=== PATIENT | male | born 1980 | race Caucasian/White ===

== ENCOUNTER 2019-10-15 21:39 | Emergency (ER) | payer SELFPAY ==
[~2019-10-15] VITALS: Ht 175.3 cm; Wt 83.9 kg
--- NOTE | 2019-10-15 21:43 | NUR ---
PT TAKEN TO BED 6
[2019-10-15 21:49] VITALS: BP 147/86
--- NOTE | 2019-10-15 21:50 | NUR ---
39 Y/O MALE C/O EPIGASTRIC/ ESOPHAGUS AND TONGUE DISOCLORATION X 15 DAYS. WENT TO [facility] 15 DAYS AGO FOR EPIGASTRIC PAIN AND WAS DIANOSISED WITH GASTIRITIS. WAS PRESCRIBED FLAGYL AND AMOXICILLIN. PT NOTICES TONGUE TURNING BLACK TODAY. TONGUE SHOWS BLACK DISCOLORATION. AIRWAY PATENT AND CLEAR. LUNG SOUNDS CLEAR ALL THROUGHOUT. ABD IS SOFT, FLAT, NONTENDER, ACTIVE BS. DENIES ANY N,V,D, OR BLOOD IN STOOL. VSS. A&O X4. STEADY GAIT. SIDERAILS UP X1. NKA. PMH: NONE.
--- NOTE | 2019-10-15 21:56 | NUR ---
Dr. Crowley examining patient.
[2019-10-15] MEDS ORDERED: PANTOPRAZOLE 40 MG TABEC PO ONE (22:05)
[2019-10-15 22:23] LABS: BASOPHILS % (AUTO) 0.4 % (0.0-2.0); EOSINOPHILS % (AUTO) 0.6 % (0.0-4.0); HEMATOCRIT 45.9 % (36-52); HEMOGLOBIN 15.1 g/dL (12.0-18.0); LYMPHOCYTES # (AUTO) 1.7 K/uL (2.0-11.5); MEAN CORPUSCULAR HEMOGLOBIN 29 pg (27-31); MEAN CORPUSCULAR HGB CONC 33 g/dL (33-37); MEAN CORPUSCULAR VOLUME 86.9 fL (80-94); MONOCYTES # (AUTO) 0.4 K/uL (0.8-1.0); MONOCYTES % (AUTO) 4.9 % (1.7-9.3); NEUTROPHILS % (AUTO) 70.1 % (42.2-75.2); PLATELET COUNT (AUTO) 225 K/uL (140-450); RED BLOOD CELL COUNT(AUTO) 5.27 MIL/uL (4.20-6.10); RED CELL DISTRIBUTION WIDTH 13.9 % (11.6-13.7); WHITE BLOOD COUNT (AUTO) 7.1 K/uL (4.8-10.8)
[2019-10-15 22:37] LABS: CARBON DIOXIDE 27.4 mmol/L (21-32); CREATININE 0.9 mg/dL (0.6-1.3); POTASSIUM 3.4 mmol/L (3.5-5.1); TOTAL BILIRUBIN 0.6 mg/dL (0.0-1.0)
[2019-10-15] MEDS ORDERED: DEXAMETHASONE 4 MG/ML VIAL PO ONE (23:05)
[2019-10-15 23:21] VITALS: BP 128/78
--- NOTE | 2019-10-15 23:36 | NUR ---
Patient discharged with v/s stable. Written and verbal after care instructions given and explained. Patient alert, oriented and verbalized understanding of instructions. Ambulatory with steady gait. All questions addressed prior to discharge. ID band removed. Patient advised to follow up with PMD. Rx of OMEPRAZOLE given. Patient educated on indication of medication including possible reaction and side effects. Opportunity to ask questions provided and answered.
== END 2019-10-15 23:36 | disposition home or self-care (01) ==
LOC: MED 21:39
DX: K29.70 Gastritis, unspecified, without bleeding (principal)
CPT/HCPCS: 36415; 80053; 83690; 85025; 99283; J1100

== ENCOUNTER 2019-10-17 00:54 | Emergency (ER) | payer SELFPAY ==
[~2019-10-17] VITALS: Ht 182.9 cm; Wt 81.6 kg
[2019-10-17 00:55] VITALS: BP 152/89
--- NOTE | 2019-10-17 00:55 | NUR ---
DR. GUSMAN ASSESSING PT IN TENT.
--- NOTE | 2019-10-17 00:55 | NUR ---
PT 39 Y/O MALE BIB SELF FOR C/O SOB X 3 DAYS. PT STATES HE WAKES UP IN THE MIDDLE OF THE NIGHT AND STARTS TO FEEL SHORT OF BREATH. PT CURRENT RESPIRATIONS ARE EVEN AND UNLABORED. O2SAT @ 98% RA. PT DENIES COUGH AND AFEBRILE. DENIES HAVING FEVER AT HOME. PT STATES HX OF GASTRITIS. PT ALSO STATES HE HAS BEEN HAVING ANXIETY ABOUT [place] [facility]IR[facility] FOR THE PAST 2 MONTHS. PT VSS. PT WEARING MASK. TRIAGE NURSE WEARING PPE. MEDHX: ANXIETY, GASTRITIS ALLERGIES: NKA
--- NOTE | 2019-10-17 01:15 | NUR ---
COVID SWAB COLLECTED.
--- NOTE | 2019-10-17 01:50 | NUR ---
KIMMIE SPOKE TO PT IN TRAIGE TENT.
[2019-10-17 02:15] VITALS: BP 152/89
--- NOTE | 2019-10-17 02:15 | NUR ---
Patient discharged with v/s stable. Written and verbal after care instructions given and explained. Patient verbalized understanding. Ambulatory with steady gait. All questions addressed prior to discharge. Advised to follow up with PMD.
== END 2019-10-17 02:15 | disposition home or self-care (01) ==
LOC: EEVIPCON 00:54 → MED 00:54
DX: R06.02 Shortness of breath (principal); Z20.828 Contact with and (suspected) exposure to other viral communicable diseases
CPT/HCPCS: 36415; 71045; 87635; 99284; Q0092

== ENCOUNTER 2019-11-03 18:33 | Emergency (ER) | payer OTHER, SELFPAY ==
[~2019-11-03] VITALS: Ht 177.8 cm; Wt 81.6 kg
[2019-11-03 18:51] VITALS: BP 137/49
--- NOTE | 2019-11-03 19:17 | NUR ---
Dr. Mc examining patient.
--- NOTE | 2019-11-03 19:22 | NUR ---
39 Y/O MALE PRESENTS TO ER WITH C/O THROAT PAIN X 1 DAY. 6/10 BURNING PAIN ONLY IN THROAT, MOSTLY FELT AT NIGHT, AND SOMETIMES AFTER EATING FOOD. DENIES FEVER, NAUSEA, VOMITING, DIARRHEA, COUGH. DENIES BLOOD IN STOOL. DENIES ABDOMINAL PAIN PT WAS HERE AT [facility] 15 DAYS TESTED FOR COVID, RESULTS WERE NEG. SIDE RAIL X1, BED IN LOW POSITION, WILL CONTINUE TO MONITOR. DENIES PMH NKDA
[2019-11-03 19:37] VITALS: BP 137/49
--- NOTE | 2019-11-03 19:38 | NUR ---
Patient discharged with v/s stable. Written and verbal after care instructions given and explained. Patient alert, oriented and verbalized understanding of instructions. Ambulatory with steady gait. All questions addressed prior to discharge. ID band removed. Patient advised to follow up with PMD. Rx of PRILOSEC given. Patient educated on indication of medication including possible reaction and side effects. Opportunity to ask questions provided and answered.
== END 2019-11-03 19:38 | disposition home or self-care (01) ==
LOC: MED 18:33
DX: J02.9 Acute pharyngitis, unspecified (principal); K21.9 Gastro-esophageal reflux disease without esophagitis
CPT/HCPCS: 99283

== ENCOUNTER 2019-12-09 22:15 | Emergency (ER) | payer OTHER ==
[~2019-12-09] VITALS: Ht 180.3 cm; Wt 94.8 kg
[2019-12-09 22:19] VITALS: BP 142/84
--- NOTE | 2019-12-09 22:25 | NUR ---
PT AMBULATED TO BED 6 WITH STEADY GAIT
--- NOTE | 2019-12-09 22:37 | NUR ---
Dr. Maldonado examining patient.
--- NOTE | 2019-12-09 22:39 | NUR ---
39 Y/O M PRESENTS TO ED C/O HEADACHE RADIATING TO BOTH EARS X 10 DAYS. PT STATES PAIN USED TO BE INTERMITTENT, BUT HAS GOTTEN WORST. PT STATES TAKING PAIN MEDICATION YESTERDAY WITH NO RELIEF. PT ALSO STATES BEING ABLE TO AMBULATE STEADILY BUT WILL SOMETIMES LOSE BALANCE. PT DENIES TRAUMA TO HEAD. RR EVEN AND UNLABORED. LUNG SOUNDS CLEAR. BED IN LOWEST POSITION, SIDE RAIL UP X1. WILL CONTINUE TO MONITOR. MHX: DENIES NKA
[2019-12-09] MEDS ORDERED: KETOROLAC 60 MG/2 ML VIAL IM ONE (22:40)
[2019-12-10 00:10] VITALS: BP 142/84
== END 2019-12-10 00:09 | disposition home or self-care (01) ==
LOC: MED 22:15
DX: G44.209 Tension-type headache, unspecified, not intractable (principal)
CPT/HCPCS: 96372; 99283; J1885

== ENCOUNTER 2021-07-11 13:49 | Emergency (ER) | payer SELFPAY ==
--- NOTE | 2021-07-11 15:16 | NUR ---
ATTEMPTED TO CALL PATIENT AND NO ANSWER AT THIS TIME
--- NOTE | 2021-07-11 15:29 | NUR ---
ATTEMPTED TO CALL PATIENT AND NO ANSWER
[2021-07-11] MEDS ORDERED: ACET-8386 PO (17:51)
== END 2021-07-11 15:16 | disposition left against medical advice (07) ==
LOC: MED 13:49
DX: M54.9 Dorsalgia, unspecified (principal); Z53.21 Procedure and treatment not carried out due to patient leaving prior to being seen by health care provider

== ENCOUNTER 2021-07-11 17:23 | Emergency (ER) | payer SELFPAY ==
[~2021-07-11] VITALS: Ht 180.3 cm; Wt 89.8 kg
[2021-07-11 17:39] VITALS: BP 157/90
--- NOTE | 2021-07-11 17:44 | NUR ---
BIB FAMILY C/O 01/26 LOWER BACK PAIN S/P FALL FROM STAIRS 2 STEPS X 20 DAYS. PM: CLOVER Addendum: 07/11/21 at 1808 by [email or web address] PT TOOK MOTRIN FOR PAIN & IRRITATED HIS STOMACH.
[2021-07-11] MEDS ORDERED: ACET-8386 PO (17:51)
[2021-07-11] MEDS ORDERED: KETOROLAC 60 MG/2 ML VIAL IM ONE ×2 (18:01→18:05)
[2021-07-11 18:09] VITALS: BP 132/78
== END 2021-07-11 18:09 | disposition home or self-care (01) ==
LOC: MED 17:23
DX: M54.50 Low back pain, unspecified (principal); Z79.899 Other long term (current) drug therapy
CPT/HCPCS: 96372; 99283; J1885

== ENCOUNTER 2023-07-05 08:16 | Emergency (ER) | payer BC ==
[~2023-07-05] VITALS: Ht 180.3 cm; Wt 90.7 kg
[~2023-07-05 08:16] MED LIST: ACET-8905 PO
[2023-07-05 08:21] VITALS: BP 125/105; PULSE 60; RESP 16; TEMP 97; O2SAT 98
[2023-07-05] MEDS ORDERED: CEFP200T20 PO (08:51)
[2023-07-05] MEDS ORDERED: PHEN-1877 PO (08:51)
[2023-07-05 09:21] LABS: APPEARANCE,URINE CLEAR (CLEAR); BILIRUBIN,URINE NEGATIVE (NEGATIVE); BLOOD, URINE NEGATIVE (NEGATIVE); COLOR,URINE YELLOW (YELLOW); LEUKOCYTE ESTERASE ,URINE NEGATIVE (NEGATIVE); NITRITE, URINE NEGATIVE (NEGATIVE); PH,URINE 6.5 (5.0-9.0); PROTEIN,URINE NEGATIVE (NEGATIVE); UGLUCOSE NEGATIVE (NEGATIVE); UROBILINOGEN,URINE 0.2 EU/dL (0.2 - 1)
== END 2023-07-05 08:57 | disposition home or self-care (01) ==
LOC: MED 08:16
DX: N39.0 Urinary tract infection, site not specified (principal); Z79.899 Other long term (current) drug therapy
CPT/HCPCS: 81003; 87086; 87491; 99283

== ENCOUNTER 2023-07-20 11:44 | Emergency (ER) | payer BC ==
[~2023-07-20] VITALS: Ht 180.3 cm; Wt 90.7 kg
[~2023-07-20 11:44] MED LIST changes: +CEFP200T20 PO; +PHEN-1877 PO
[2023-07-20 11:53] VITALS: BP 114/70; PULSE 57; RESP 18; TEMP 97.3; O2SAT 98
[2023-07-20 13:34] LABS: APPEARANCE,URINE CLEAR (CLEAR); BILIRUBIN,URINE NEGATIVE (NEGATIVE); BLOOD, URINE NEGATIVE (NEGATIVE); COLOR,URINE YELLOW (YELLOW); LEUKOCYTE ESTERASE ,URINE NEGATIVE (NEGATIVE); NITRITE, URINE NEGATIVE (NEGATIVE); PROTEIN,URINE NEGATIVE (NEGATIVE); UGLUCOSE NEGATIVE (NEGATIVE); UROBILINOGEN,URINE 0.2 EU/dL (0.2 - 1)
[2023-07-20 13:37] LABS: BASOPHILS % (AUTO) 0.6 % (0.0-2.0); EOSINOPHILS # (AUTO) 0.1 K/uL (0-0.4); HEMATOCRIT 44.8 % (36-52); HEMOGLOBIN 15.2 g/dL (12.0-18.0); LYMPHOCYTES # (AUTO) 2.1 K/uL (2.0-11.5); LYMPHOCYTES % (AUTO) 30.7 % (20.5-51.1); MEAN CORPUSCULAR HEMOGLOBIN 29 pg (27-31); MEAN CORPUSCULAR HGB CONC 34 g/dL (33-37); MEAN CORPUSCULAR VOLUME 85.5 fL (80-94); MONOCYTES # (AUTO) 0.5 K/uL (0.8-1.0); MONOCYTES % (AUTO) 6.8 % (1.7-9.3); NEUTROPHILS # (AUTO) 4.2 K/uL (1.8-7.7); NEUTROPHILS % (AUTO) 59.9 % (42.2-75.2); PLATELET COUNT (AUTO) 235 K/uL (140-450); RED BLOOD CELL COUNT(AUTO) 5.24 MIL/uL (4.20-6.10); RED CELL DISTRIBUTION WIDTH 14.8 % (11.6-13.7)
[2023-07-20 13:50] LABS: ALBUMIN 3.5 g/dL (3.4-5.0); ANION GAP 10.1 (8-16); CALCIUM 8.7 mg/dL (8.5-10.1); CARBON DIOXIDE 28.3 mmol/L (21-32); CREATININE 0.8 mg/dL (0.6-1.3); POTASSIUM 4.4 mmol/L (3.5-5.1); TOTAL BILIRUBIN 0.3 mg/dL (0.0-1.0)
[2023-07-20 14:14] VITALS: BP 121/61; PULSE 59; RESP 20; TEMP 98; O2SAT 94
== END 2023-07-20 14:14 | disposition home or self-care (01) ==
LOC: MED 11:44
DX: R30.0 Dysuria (principal); R10.9 Unspecified abdominal pain; Z79.899 Other long term (current) drug therapy
CPT/HCPCS: 36415; 80053; 81003; 83690; 85025; 87491; 99283